=== PATIENT | female | born 1985 | race Caucasian/White ===

== ENCOUNTER 2021-04-09 07:23 | Emergency (ER) | payer SELFPAY ==
[~2021-04-09] VITALS: Ht 160 cm; Wt 69.0 kg
[~2021-04-09 07:23] MED LIST: CIPROFLOXACN500 MG PO; PYRIDIUM200 MG PO; ULTRAM50 M1 PO
[2021-04-09] MEDS ORDERED: PROAIR HFA108 MCG/AC PO (08:52)
[2021-04-09] MEDS ORDERED: DOXYCYCL HYC100 M4 PO (08:52)
[2021-04-09 09:06] VITALS: BP 146/94
== END 2021-04-09 09:06 | disposition home or self-care (01) | DRG 153 ==
LOC: ED 07:23
DX: J06.9 Acute upper respiratory infection, unspecified (principal); F17.200 Nicotine dependence, unspecified, uncomplicated; Z20.822 Contact with and (suspected) exposure to COVID-19